=== PATIENT | female | born 1950 | race Caucasian/White ===

== ENCOUNTER 2023-03-08 06:33 | Day surgery (SDC) | payer OTHER ==
[2023-03-06 11:10] VITALS: BMI 30.7
[2023-03-08 07:07] VITALS: RESP 16
[2023-03-08] MEDS ORDERED: BUPIVACAINE HCL/PF 0.5% (5MG/ML) 10 ML VIAL ONE (07:18)
[2023-03-08] MEDS ORDERED: PROPOFOL 20 ML ONE ×3 (07:25→08:35)
[2023-03-08] MEDS ORDERED: MIDAZOLAM HCL 2 MG/2 ML SINGLE DOSE VIAL ONE (07:25)
[2023-03-08] MEDS ORDERED: BUPIVACAINE HCL/PF 0.5% (5MG/ML) 10 ML VIAL IJ ONE (08:58)
[2023-03-08] MEDS ORDERED: KETOROLAC TROMETHAMINE 30 MG/1 ML VIAL ONE (09:00)
[2023-03-08] MEDS ORDERED: ceFAZolin SODIUM 1 GM VIAL ONE (09:00)
[2023-03-08] MEDS ORDERED: ONDANSETRON 4 MG/2 ML VIAL ONE (09:00)
[2023-03-08] MEDS ORDERED: DEXAMETHASONE SOD PHOSPHATE 4 MG/1 ML VIAL ONE (09:00)
[2023-03-08] MEDS ORDERED: oxyCODONE HCL 5 MG TABLET PO PRN (09:18)
[2023-03-08] MEDS ORDERED: ACETAMINOPHEN 1000 MG/100 ML BAG IVPB ONE ×2 (09:18→09:30)
[2023-03-08 09:52] VITALS: TEMP 97.1
[2023-03-08] MEDS ORDERED: oxyCODONE HCL 10 MG SUSTAINED ACTING TABLET ONE (10:39)
[2023-03-08] MEDS ORDERED: oxyCODONE HCL 10 MG SUSTAINED ACTING TABLET PO ONE (10:40)
[2023-03-08] MEDS ORDERED: ALBUTEROL SO4 0.083% IH SOL 2.5 MG/3 ML VIAL.NEB. NEB ONE (11:29)
[2023-03-08 12:50] VITALS: BP 101/61; PULSE 94
== END 2023-03-08 12:20 | disposition home or self-care (01) ==
LOC: FASU 06:33
PROVIDERS: ATTEND Orthopaedic Surgery
PROC: 0SBC4ZZ Excision of Right Knee Joint, Percutaneous Endoscopic Approach (ICD-10-PCS; 2023-03-08)
PROC: 0SBC4ZZ Excision of Right Knee Joint, Percutaneous Endoscopic Approach (ICD-10-PCS; 2023-03-08)
PROC: 0SBC4ZZ Excision of Right Knee Joint, Percutaneous Endoscopic Approach (ICD-10-PCS; principal; 2023-03-08 08:30)
DX: S83.241A Other tear of medial meniscus, current injury, right knee, initial encounter (principal); S83.281A Other tear of lateral meniscus, current injury, right knee, initial encounter; M17.11 Unilateral primary osteoarthritis, right knee; M25.561 Pain in right knee; X58.XXXA Exposure to other specified factors, initial encounter; Y93.9 Activity, unspecified; Y92.9 Unspecified place or not applicable
CPT/HCPCS: 29880; G0289

== ENCOUNTER 2023-03-08 12:10 | Emergency (ER) | payer OTHER ==
[2023-03-08 12:27] VITALS: BMI 30.5
[2023-03-08] MEDS ORDERED: ONDANSETRON *ODT* 4 MG TABLET SL ONE ×2 (13:25→14:11)
[2023-03-08] MEDS ORDERED: ONDANSETRON *ODT* 4 MG TABLET ONE ×2 (13:47→14:15)
[2023-03-08 14:38] VITALS: BP 103/56; PULSE 80; RESP 18
== END 2023-03-08 14:45 | disposition home or self-care (01) ==
LOC: FER 12:10
DX: R11.2 Nausea with vomiting, unspecified (principal); R06.82 Tachypnea, not elsewhere classified; R06.4 Hyperventilation; R45.83 Excessive crying of child, adolescent or adult; R07.1 Chest pain on breathing
CPT/HCPCS: 99283-25; Q0162